=== PATIENT | male | born 1980 | race Caucasian/White ===

== ENCOUNTER → 2017-06-28 | Outpatient (CLI) | payer BC, OTHER ==
[~2017-06-28] MED LIST: IBUP-103 PO
--- NOTE | 2017-06-28 10:13 | DIAGNOSTIC IMAGING REPORT ---
R FINGER(S) MIN 2 VIEWS HISTORY: 37 years-old Male RIGHT THUMB DISLOCATION acute right thumb pain COMPARISON: None available TECHNIQUE: 4 views of the right thumb FINDINGS: There is an acute minimally displaced intra-articular fracture involving the medial base of the first proximal phalanx with mild soft tissue swelling. Ulnar displacement of approximately 2 mm. No opaque foreign body. IMPRESSION: Acute minimally displaced intra-articular fracture involves the medial base of the first proximal phalanx. Correlate clinically to exclude ulnar collateral ligament injury. The above report was generated using voice recognition software. It may contain grammatical, syntax or spelling errors. Electronically signed by: Manish Rogers M.D. 06/28/2017 10:12 AM Dictated Date/Time: 06/28/2017 10:11 AM
== END | disposition home or self-care (01) ==
LOC: C.RDSM 09:48
PROVIDERS: ATTEND Physician Assistant
DX: S63.104A Unspecified dislocation of right thumb, initial encounter (principal); X58.XXXA Exposure to other specified factors, initial encounter

== ENCOUNTER → 2017-07-05 | Outpatient (CLI) | payer OTHER | END | disposition home or self-care (01) | LOC: C.RDSM 19:40 | PROVIDERS: ATTEND Physical Medicine & Rehabilitation Sports Medicine | DX: S62.514A Nondisplaced fracture of proximal phalanx of right thumb, initial encounter for closed fracture (principal); X58.XXXA Exposure to other specified factors, initial encounter ==

== ENCOUNTER → 2017-07-31 | Outpatient (CLI) | payer OTHER | END | disposition home or self-care (01) | LOC: C.RDSM 15:02 | PROVIDERS: ATTEND Physical Medicine & Rehabilitation Sports Medicine | DX: S62.514A Nondisplaced fracture of proximal phalanx of right thumb, initial encounter for closed fracture (principal); X58.XXXA Exposure to other specified factors, initial encounter ==